=== PATIENT | female | born 1990 | race Caucasian/White ===

== ENCOUNTER 2019-12-27 10:49 | Outpatient (CLI) | payer BC, SELFPAY ==
--- NOTE | ~2019-12-27 | US_ITS ---
EXAMINATION: US OB <=14 wk fetus w TV EXAM DATE: 12/27/2019 12:52 INDICATION: Cramping, spotting, threatened . 1st trimester. TECHNIQUE: Pelvic obstetrical transabdominal and transvaginal sonogram was performed by a technologi . There are multiple grayscale and Doppler images available for interpretation. There are no karen ier studies of this gestation for comparison. FINDINGS: The uterus measures 9.4 x 4.9 x 4.6 cm. There is tiny anechoic focus within this, which if this is a gestation sac has mean sac diameter of 3 mm corresponding to estimated age 4 weeks 6 days. No yolk sac or pole. Small amount of free pelvic fluid. The ovaries are morphologically normal. IMPRESSION: Tiny anechoic endometrial focus, possible early gestation sac. Reviewed, dictated and finalized at location B.
[2019-12-27 14:41] LABS: Beta HCG Quantitative 190.51 mIU/ML
== END 2019-12-27 10:50 | disposition home or self-care (01) ==
PROVIDERS: PCP Internal Medicine; Visit Provider Obstetrics & Gynecology
DX: O20.0 Threatened abortion (principal); Z3A.00 Weeks of gestation of pregnancy not specified
CPT/HCPCS: 36415; 76801; 76817; 84702

== ENCOUNTER 2019-12-29 11:42 | Outpatient (CLI) | payer BC, SELFPAY ==
[2019-12-29 12:53] LABS: Beta HCG Quantitative 258.19 mIU/ML
== END 2019-12-29 11:43 | disposition home or self-care (01) ==
LOC: ANHLAB 11:47
PROVIDERS: PCP Internal Medicine; Visit Provider Obstetrics & Gynecology
DX: O20.0 Threatened abortion (principal)
CPT/HCPCS: 36415; 84702

== ENCOUNTER 2019-12-31 11:30 | Outpatient (RCR) | payer BC, SELFPAY ==
[2019-12-31 13:02] LABS: Beta HCG Quantitative 308.91 mIU/ML
== END 2020-03-30 23:59 | disposition home or self-care (01) ==
LOC: ANHLAB 11:30
PROVIDERS: PCP Internal Medicine; Visit Provider Obstetrics & Gynecology
DX: O20.0 Threatened abortion (principal); Z3A.00 Weeks of gestation of pregnancy not specified
CPT/HCPCS: 36415; 84702

== ENCOUNTER 2020-01-03 11:43 | Emergency (ER) | payer BC, SELFPAY ==
[2020-01-03 11:55] VITALS: BP 164/84; PULSE 61; RESP 17; TEMP 36.8; O2SAT 100
[2020-01-03 12:10] LABS: Basophils Percent Auto 0.3 % (0.2-1.2); Eosinophils Absolute Auto 0.1 K/mm3 (0-0.3); Hematocrit 38.5 % (37.0-47.0); Hemoglobin 12.5 g/dL (12.0-15.0); Immature Granulocyte Absolute 0.02 K/mm3 (0.00-0.031); Immature Granulocyte Percent A 0.3 % (0-0.5); Mean Corpuscular HGB Conc 32.5 g/dl (32-36); Mean Corpuscular Hemoglobin 28.7 pg (26-34); Mean Corpuscular Volume 88.5 fl (80-100); Monocytes Absolute Auto 0.4 K/mm3 (0.1-0.6); Monocytes Percent Auto 5.3 % (2.6-8.5); Neutrophils Absolute Auto 3.9 K/mm3 (1.3-6.7); Neutrophils Percent Auto 56.1 % (45.5-73.1); Platelet Count Result 253 k/mm3 (150-375); Red Blood Count 4.35 M/mm3 (4.2-5.4); White Blood Count 6.9 K/mm3 (4.5-10.0)
[2020-01-03 12:49] LABS: Beta HCG Quantitative 144.68 mIU/ML
--- NOTE | 2020-01-03 13:03 | ED.FEMALEGU ---
HPI - Female Genitourinary General Chief complaint: Vaginal Bleeding Stated complaint: miscarriage Time Seen by Provider: 01/03/20 12:55 History of Present Illness HPI Narrative: She is curently being followed by Dr. snyder for suspect impending miscarriage. She has been having vaginal spotting since 12/26. US at that time showed possible early gestational sac. She has been having her bhcg followed since that time and it has failed to increase as expected. Today she began having heavy vaginal bleeding She was filling up a pad about every 45 minutes. SHe is also having moderate pelvic cramping. She did have a few breif episodes of light headedness. No nausea, vomiting, diarrhea, fever, chest pain. Related Data Home Medications Medication Instructions Recorded Confirmed PNV cmb#95-ferrous fumarate-FA 1 tablet PO DAILY 01/03/20 01/03/20 [] Allergies Allergy/AdvReac Type Severity Reaction Status Date / Time latex Allergy Rash Verified 01/03/20 12:04 Penicillins Allergy Difficulty Verified 01/03/20 12:04 Breathing Review of Systems Review of Systems: All systems reviewed & are unremarkable except as noted in HPI and below Cardiovascular: Cardiovascular: Denies chest pain Respiratory: Respiratory: Denies dyspnea Gastrointestinal: Gastrointestinal: Denies abdominal pain, Denies diarrhea, Denies nausea and Denies vomiting Genitourinary: Genitourinary: Reports abnormal vaginal bleeding, Denies hematuria, Denies dysuria, Reports pelvic pain and Denies vaginal discharge Neurologic: Reports dizziness, Denies syncope and Denies weakness PMFSH Social History Social History Gender identity (if verbalized by the patient): Female Exam Const: General: healthy appearing, no acute distress and alert Orientation/consciousness: patient oriented x3 HENMT: Head: normal to inspection Resp: Effort & Inspection: normal respiratory effort Auscultation: clear to auscultation bilaterally Cardio: Rate: regular rate Rhythm: regular rhythm GI: GI Palp: Yes Soft to palpation and No Tenderness to palpation present (GI) Skin: General skin exam: normal color and no pallor Neuro: General: patient oriented x3 and moves all extremities Speech: normal speech Course Vital Signs Vital signs: Vital Signs Temperature 36.8 C 01/03/20 11:55 Pulse Rate 61 01/03/20 11:55 Respiratory Rate 17 01/03/20 11:55 Blood Pressure 164/84 H 01/03/20 11:55 Pulse Oximetry 100 01/03/20 11:55 Temperature 36.8 C 01/03/20 11:55 Pulse Rate 61 01/03/20 11:55 Respiratory Rate 17 01/03/20 11:55 Blood Pressure 164/84 H 01/03/20 11:55 Pulse Oximetry 100 01/03/20 11:55 MDM - Female Genitourinary MDM Narrative Medical decision making narrative: CBC normal. Symptoms consistent with miscarriage. bhcg trending down. Case discussed with Dr. Snyder. No additional imaging needed at this time. He will see her in clinic today or tomorrow to dicuss her options. I discussed this with the patient and she is in agreement with this plan. Medical Records Attestation: I reviewed the patient's medical records. Lab Data Attestation: I reviewed the patient's lab results. Result diagrams: 01/03/20 11:59 Labs: Lab Results 01/03/20 01/03/20 01/03/20 Range/Units 11:59 11:59 11:59 WBC 6.9 (4.5-10.0) K/mm3 RBC 4.35 (4.2-5.4) M/mm3 Hgb 12.5 (12.0-15.0) g/dL Hct 38.5 (37.0-47.0) % MCV 88.5 (80-100) fl MCH 28.7 (26-34) pg MCHC 32.5 (32-36) g/dl RDW 13.0 (11.5-14.5) % Plt Count 253 (150-375) k/mm3 MPV 10.0 (7.4-10.4) fl Immature Gran % (Auto) 0.3 (0-0.5) % Neut % (Auto) 56.1 (45.5-73.1) % Lymph % (Auto) 36.0 (18.3-44.2) % [place] % (Auto) 5.3 (2.6-8.5) % Eos % (Auto) 2.0 (0-4.4) % Baso % (Auto) 0.3 (0.2-1.2) % Lymph # (Auto) 2.50 (0.9-3.2) K/mm3 [place] # (Auto) 0.4 (0.
[2020-01-03 13:31] VITALS: BP 162/83; PULSE 62; RESP 18; O2SAT 100
== END 2020-01-03 13:33 | disposition home or self-care (01) ==
PROVIDERS: Emergency Provider Emergency Medicine; PCP Internal Medicine
DX: O03.4 Incomplete spontaneous abortion without complication (principal)
CPT/HCPCS: 36415; 84702; 85025; 85461; 99283

== ENCOUNTER 2020-01-08 02:03 | Outpatient (CLI) | payer BC, SELFPAY ==
[2020-01-08 17:59] LABS: SARS-CoV-2 RNA PCR Negative
== END 2020-01-08 02:04 | disposition home or self-care (01) ==
LOC: ANHCOVIDDT 02:03
PROVIDERS: PCP Internal Medicine; Visit Provider Obstetrics & Gynecology
DX: Z01.812 Encounter for preprocedural laboratory examination (principal); Z20.828 Contact with and (suspected) exposure to other viral communicable diseases
CPT/HCPCS: 87635; C9803; U0003

== ENCOUNTER 2020-01-10 02:43 | Day surgery (SDC) | payer BC, SELFPAY ==
[2020-01-10] MEDS: ACETAMINOPHEN 500 MG TABLET 1000 MG PO (11:19)
[2020-01-10 11:29] VITALS: BP 130/81; PULSE 57; RESP 20; TEMP 37.3; O2SAT 99
[2020-01-10] MEDS: LACTATED RINGERS 1,000 ML 30 ML IV CONT ×2 (11:55→14:36)
--- NOTE | 2020-01-10 11:59 | WPDANESEPPF ---
Anes - Initial Pre Proc Eval Procedure: Operation Date: 01/10/20 13:00 Proposed Procedures p Suction Dilation And Curettage - Sai Judd MD Date/Time: 01/10/20 11:59 Surgeon: Sai Judd MD Pre Op Diagnosis: Retained Products Of Conception Patient Data Age: 29 Gender: F Height: 1.52 m Weight: 124 kg Last Vital Signs Temp 37.3 C 01/10/20 11:29 Pulse 57 L 01/10/20 11:29 Resp 20 01/10/20 11:29 BP 130/81 01/10/20 11:29 Pulse Ox 99 01/10/20 11:29 Allergies Allergy/AdvReac Type Severity Reaction Status Date / Time Penicillins Allergy Severe DIFFICULTY Verified 01/10/20 11:17 BREATHING/HIVES latex AdvReac Mild SKIN Verified 01/10/20 11:17 IRRITATION Home Medications Medication Instructions Recorded Confirmed Type PNV cmb#95-ferrous fumarate-FA 1 tablet PO DAILY 01/03/20 01/10/20 History [] bupropion HCl [Wellbutrin XL] 300 mg PO QAM 01/07/20 01/07/20 History clonazepam 0.5 mg PO DAILY 01/07/20 01/10/20 History sertraline [Zoloft] 150 mg PO DAILY 01/07/20 01/07/20 History Patient hx anesthesia problems: none Family hx anesthesia problems: none PMFSH Past Medical History Medical History (Updated 01/10/20 @ 08:09 by Michael Khlail DO) Anxiety Depression OCD (obsessive compulsive disorder) Social History Social History Smoking status: Never smoker Alcohol use details: 1 glass a wine per week Substance use: never Living arrangements: with family Gender identity (if verbalized by the patient): Female Sexual Orientation (if Verbalized by the Patient): Straight or Heterosexual Spiritual care concerns: No Anes - Eval Final PreProcedure Day of Procedure 01/10/20 11:59 Patient weight: super morbidly obese Heart: regular rate and rhythm Lungs: clear to auscultation and normal air movement Airway: Mallampati scale class 1 Neurological: alert and oriented Last oral intake: >/= 8 hours ASA classification: III Emergent: no Anesthetic plan: proceed Anesthesia type and monitoring: general GIVS and standard monitoring Informed Consent: The patient's anesthetic plan and its attendant risks and benefits were discussed with the patient/family/POA. Questions were solicited and answers provided to the satisfaction of the patient/family/POA.
--- NOTE | 2020-01-10 12:52 | WPDHPUPDATE1 ---
History and Physical Update Update Date/Time: 01/10/20 12:52 History and Physical has been reviewed, including an updated exam of the patient. There are NO changes in the patient's condition. Risks, benefits, and alternatives have been discussed and questions answered. Patient agrees to proceed with procedure.
[2020-01-10 13:08] VITALS: BP 131/89; PULSE 76; RESP 22; O2SAT 98
--- NOTE | 2020-01-10 13:35 | PM.PROC ---
Procedure Note - Detailed Date of procedure: 01/10/20 Pre-op diagnosis: Retained Products Of Conception Post-op diagnosis: same Procedure performed: Suction D&C Description of procedure: The patient was taken the operating room. She has prepped and draped in dorsal lithotomy position after induction of mac anesthesia. A speculum was placed in the vagina. The cervix was grasped with a tenaculum. The cervix was injected at 3 and 9:00 a.m. with 1% lidocaine. The cervix was dilated up to 8 mm using Melton dilators. An 8 curved plastic suction curette was then applied to the intrauterine cavity. All of the surfaces in the intrauterine cavity were curettage under VAC. A sharp medium-size curette was then used to curettage all the surfaces to confirmed the removal of all the products conception. When all surfaces for bleed to be clean the curette was removed. The suction curette was then reapplied to remove all the debris. The procedure was terminated. The tenaculum was removed. The speculum was removed. The patient tolerated the procedure well. She was taken recovery room in stable condition. Anesthesia: MAC Surgeon: Sai Judd MD Estimated blood loss (mL): 25 Drains: No Packing: No Pathology: yes Complications: No immediate complications Condition: stable Disposition: PACU Findings: Normal vulva vagina and cervix. The moderate amounts of products conception. 8 cm uterus.
[2020-01-10] MEDS: fentaNYL CITRATE INJ (*CRX) 100 MCG/2 ML VIAL 25 MCG IV PUSH (13:54)
[2020-01-10 14:05] VITALS: BP 135/82; PULSE 59; RESP 20
--- NOTE | 2020-01-10 14:09 | SUR.PHASEII ---
AT BEDSIDE. PT NOW ASLEEP.
[2020-01-10] MEDS: ONDANSETRON INJ 4 MG/2 ML VIAL IV PUSH (14:30)
[2020-01-10 14:35] VITALS: BP 119/78; PULSE 54; RESP 20
--- NOTE | 2020-01-10 14:50 | SUR.PHASEII ---
CORRECTION: ASSESSMENT AND VITAL SIGNS CHARTED AT 1308 WERE SUPPOSED TO BE ENTERED 1337.
[2020-01-10 15:05] VITALS: BP 127/78; PULSE 59; RESP 20
--- NOTE | 2020-01-10 15:10 | SUR.PHASEII ---
NATANAEL MCCURDY FROM [facility] OFFERED TO SEE PT. PT WILL FOLLOW-UP WITH HER FROM HOME. NATANAEL AWARE OF PLAN. PT NOW RESTING ON RECLINER. C/O'D MIGRAINE; ZOFRAN GIVEN; COOL COMPRESS TO BACK OF NECK. AT BEDSIDE. PT REPORTED BLOOD IN TOILET BUT NONE ON PAD. WILL CONTINUE TO MONITOR.
[2020-01-10 15:35] VITALS: BP 122/70; PULSE 64; RESP 20
== END 2020-01-10 16:07 | disposition home or self-care (01) ==
PROVIDERS: PCP Internal Medicine; Visit Provider Obstetrics & Gynecology
PROC: (CPT 59820; principal; 2020-01-10 13:00)
DX: O02.1 Missed abortion (principal); F41.8 Other specified anxiety disorders; F42.8 Other obsessive-compulsive disorder; E66.01 Morbid (severe) obesity due to excess calories; Z68.43 Body mass index [BMI] 50.0-59.9, adult
CPT/HCPCS: 59820; 88305; A9270; J1100; J2250; J2405; J2704; J3010; J7120

== ENCOUNTER 2022-12-16 16:35 | Outpatient (RCR) | payer OTHER, SELFPAY ==
[2022-12-16 19:13] LABS: Beta HCG Quantitative 26.65 mIU/ML
== END 2022-12-16 16:36 | disposition home or self-care (01) ==
LOC: ANHLAB 16:35
PROVIDERS: PCP Internal Medicine; Visit Provider Obstetrics & Gynecology
DX: O20.0 Threatened abortion (principal); Z3A.00 Weeks of gestation of pregnancy not specified
CPT/HCPCS: 36415; 84702

== ENCOUNTER 2022-12-18 16:29 | Outpatient (CLI) | payer OTHER, SELFPAY ==
[2022-12-18 17:49] LABS: Beta HCG Quantitative 19.65 mIU/ML
== END 2022-12-18 16:30 | disposition home or self-care (01) ==
LOC: ANHLAB 16:31
PROVIDERS: PCP Internal Medicine; Visit Provider Obstetrics & Gynecology
DX: O20.0 Threatened abortion (principal); Z3A.00 Weeks of gestation of pregnancy not specified
CPT/HCPCS: 36415; 84702

== ENCOUNTER 2022-12-25 16:14 | Outpatient (CLI) | payer OTHER, SELFPAY ==
[2022-12-25 17:47] LABS: Beta HCG Quantitative < 2.39 mIU/ML
== END 2022-12-25 16:15 | disposition home or self-care (01) ==
LOC: ANHLAB 16:17
PROVIDERS: PCP Internal Medicine; Visit Provider Obstetrics & Gynecology
DX: O02.1 Missed abortion (principal)
CPT/HCPCS: 36415; 84702

== ENCOUNTER 2023-07-23 16:15 | Outpatient (RCR) | payer OTHER, SELFPAY ==
[2023-07-21 17:29] LABS: Beta HCG Quantitative 55.59 mIU/ML
[2023-07-23 17:19] LABS: Beta HCG Quantitative 135.58 mIU/ML
== END 2023-10-19 23:59 | disposition home or self-care (01) ==
LOC: ANHLAB 16:15
PROVIDERS: PCP Obstetrics & Gynecology; Visit Provider Obstetrics & Gynecology
DX: O20.0 Threatened abortion (principal)
CPT/HCPCS: 36415; 84702

== ENCOUNTER 2023-09-03 01:26 | Day surgery (SDC) | payer OTHER, SELFPAY ==
[2023-09-02 11:05] VITALS: BMI 45.5
--- NOTE | 2023-09-02 11:06 | PC.NURSE ---
Report to the Outpatient Waiting Room, entrance under the green pavilion located off [facility], at time _0830_ on date _[id number]_. Planned Procedure Time: _1030_. Time changes happen often and if your time is changed the preop area will call you the afternoon before. - You and your visitor will be asked to self-screen and do not enter if you have any COVID symptoms. - A mask is optional within the hospital at this time. Patients may have clear liquids (water, carbonated beverages, clear teas, apple juice) until 3 hours prior to surgery with a maximum of 20 ounces. - No food from midnight until time of surgery Take the following medications with a SIP of water the morning of surgery: ___None DO NOT STOP ANY OF YOUR OTHER PRESCRIPTION MEDICATIONS PRIOR TO SURGERY ?EXCEPT THE FOLLOWING Medications to discontinue per physician None Date to take last dose Please no make-up, nail frisian, hairspray, perfume, deodorant, or body powder the day of surgery. No jewelry (including any body piercings) or valuables the day of surgery, leave them at home. Please take a shower or bath the night before, or the morning of, surgery with an antibacterial soap. Wear comfortable, loose fitting clothing. - Jewelry must be removed prior to entering the operating room. Rings and piercings that are not removed may be cut off. - The hospital will not accept responsibility for valuables. - Please leave all valuables, including medications, at home the day of surgery. If you are going home after surgery, a licensed non emergency services ambulance driver must drive you home. - NO public transportation without another adult if you receive anesthesia. - We recommend that an adult stay with you for 24 hours following discharge. - We also recommend that you do not drive, make important decision, drink alcoholic beverages, or take any drugs that were not prescribed by your health care provider for at least 24 hours after your discharge time. Follow any additional instructions given to you from your surgeon. If you or anyone in your household have experienced Covid symptoms in the past week, please notify your surgeon or the nurse liaison at the phone number below for possible testing. Telephone instructions given to __Kandice__and asked if any additional questions and then verbalized understanding. Patient advised to call surgeon office or pre surgery nurse liaison [phone] if any additional questions.
--- NOTE | ~2023-09-03 | US_ITS ---
EXAMINATION: US OB <= 14 weeks fetus DATE: 09/03/2023 10:23 INDICATION: Missed . TECHNIQUE: Real-time transabdominal pelvic ultrasound was performed. COMPARISON: None. FINDINGS: The uterus measures 9.9 x 5.7 x 6.3 cm. The endometrial complex is thickened to 2.4 cm with increased vascular flow. No intrauterine gestation is identified. The ovaries are not visualized. There is no free fluid in the pelvis. IMPRESSION: 1. Thickened endometrial complex with increased vascular flow. If the patient has passed parts , these findings are consistent with retained products of conception. Reviewed, dictated and finalized at location A. IMPRESSION: 1. Thickened endometrial complex with increased vascular flow. If the patient has passed parts, these findings are consistent with retained products of conception.
[2023-09-03 09:20] VITALS: BP 149/88; PULSE 71; RESP 14; TEMP 37.1; O2SAT 100
[2023-09-03] MEDS: ACETAMINOPHEN 500 MG TABLET 1000 MG PO (09:20)
[2023-09-03] MEDS: LACTATED RINGERS 1,000 ML 30 ML IV CONT (09:20)
--- NOTE | 2023-09-03 09:32 | P.PNAN_ITS ---
Anes - Initial Pre Proc Eval Procedure: Operation Date: 09/03/23 10:30 Proposed Procedures p Suction Dilation and Curettage - Dayton Judd MD Date/Time: 09/03/23 09:32 Surgeon: Dayton Judd MD Pre Op Diagnosis: Missed AB Patient Data Age: 32 Gender: F Height: 1.7 m Weight: 137.7 kg Last Vital Signs Temp 37.1 C 09/03/23 09:20 Pulse 71 09/03/23 09:20 Resp 14 09/03/23 09:20 BP 149/88 H 09/03/23 09:20 Pulse Ox 100 09/03/23 09:20 O2 Del Method Room Air 09/03/23 09:20 Allergies Allergy/AdvReac Type Severity Reaction Status Date / Time Penicillins Allergy Severe DIFFICULTY Verified 09/03/23 09:27 BREATHING/HIVES Sulfa (Sulfonamide Allergy Severe Hives Verified 09/03/23 09:27 Antibiotics) latex AdvReac Mild SKIN Verified 09/03/23 09:27 IRRITATION Home Medications Medication Instructions Recorded Confirmed Type clonazepam 0.5 mg tablet 0.5 mg PO DAILY 01/07/20 09/02/23 History sertraline 100 mg tablet (Zoloft) 150 mg PO DAILY 01/07/20 09/02/23 History Patient hx anesthesia problems: none Family hx anesthesia problems: none Results Review: All pre-operative results and documents have been reviewed as part of the pre- operative evaluation. [facility] Past Medical History Medical History Anxiety Depression OCD (obsessive compulsive disorder) Social History Social History Smoking status: Never smoker Alcohol intake: current Drinks per week: 1 Alcohol use details: 1 glass a wine per week Substance use: never Living arrangements: with family Gender identity (if verbalized by the patient): Female Sexual Orientation (if Verbalized by the Patient): Straight or Heterosexual Spiritual care concerns: No Anes - Eval Final PreProcedure Day of Procedure 09/03/23 09:32 Patient weight: morbidly obese Heart: regular rate and rhythm Lungs: clear to auscultation Airway: Mallampati scale class II Neurological: alert and oriented Last oral intake: >/= 8 hours ASA classification: III Emergent: no Anesthetic plan: proceed Anesthesia type and monitoring: general GIVS and standard monitoring Results Review: All pre-operative results and documents have been reviewed as part of the pre- operative evaluation. Informed Consent: The patient's anesthetic plan and its attendant risks and benefits were discussed with the patient/family/POA. Questions were solicited and answers pro vided to the satisfaction of the patient/family/POA.
--- NOTE | 2023-09-03 10:15 | WPDHPUPDATE1 ---
History and Physical Update Update Date/Time: 09/03/23 10:15 History and Physical has been reviewed, including an updated exam of the patient. There are NO changes in the patient's condition. Risks, benefits, and alternatives have been discussed and questions answered. Patient agrees to proceed with procedure.
--- NOTE | 2023-09-03 10:15 | PM.IMHP ---
H&P: HPI History of Present Illness Date/Time: 09/03/23 10:15 Chief Complaint: Incomplete miscarriage Narrative: 37-year-old female with incomplete miscarriage. She has had multiple miscarriages now. We have agreed to proceed with suction D&C. The patient understands the details of the procedure. The procedure has been explained in detail. She understands the risks. She understands that injuries may occur that result in hospitalization, more surgery, and severe illness. She understands risk of hemorrhage and infection. She denies any chest pain or shortness of breath. She denies any nausea, vomiting, fever, chills. Review of Systems Review of Systems: All systems reviewed & are unremarkable except as noted in HPI and below Constitutional: Constitutional: Denies chills, Denies fatigue, Denies fever(s) and Denies weakness Eyes: Eyes: Denies blurry vision, Denies change in vision, Denies loss of peripheral vision, Denies loss of vision, Denies other visual disturbances and Denies eye pain ENT: Denies vertigo, Denies dizziness, Denies hearing loss, Denies mouth pain, Denies nasal obstruction, Denies neck mass and Denies neck pain Cardiovascular: Cardiovascular: Denies chest pain, Denies diaphoresis, Denies syncope, Denies leg edema and Denies dyspnea Respiratory: Respiratory: Denies chest congestion, Denies cough, Denies hemoptysis, Denies dyspnea and Denies wheezing Gastrointestinal: Gastrointestinal: Denies abdominal pain, Denies constipation, Denies diarrhea, Denies nausea and Denies vomiting Genitourinary: Genitourinary: Denies hematuria, Denies change in libido, Denies nocturia, Denies genital lesions, Denies flank pain and Denies urinary urgency Musculoskeletal: Musculoskeletal: Denies abnormal gait, Denies back pain, Denies myalgias, Denies arthralgias, Denies joint swelling, Denies muscle weakness and Denies neck pain Integumentary/Breasts: Skin/Breast: Denies swelling, Denies breast pain, Denies breast mass, Denies dry skin, Denies nipple discharge, Denies unusual bruising and Denies jaundice Neurologic: Denies Neuro-related abnormal movements, Denies Abnormal speech present, Denies abnormal gait, Denies behavioral changes, Denies confusion, Denies vertigo, Denies dizziness, Denies syncope, Denies loss of vision, Denies memory loss, Denies convulsions and Denies weakness Psychiatric: Psychiatric: Denies abnormal sleep pattern, Denies behavioral changes, Denies change in libido, Denies confusion, Denies depression, Denies anhedonia and Denies memory loss Endocrine: Endocrine: Reports no additional endocrine complaints, Denies change in libido and Denies fatigue Hematologic/Lymphatic: Hematologic/Lymphatic: Reports no additional hematologic/lymphatic complaints Allergic/Immunologic: Allergic/Immunologic: Reports no additional allergic/immunologic complaints and Denies wheezing PMFSH Past Medical History Medical History Anxiety Depression OCD (obsessive compulsive disorder) Social History Social History Smoking status: Never smoker Alcohol intake: current Drinks per week: 1 Alcohol use details: 1 glass a wine per week Substance use: never Living arrangements: with family Gender identity (if verbalized by the patient): Female Sexual Orientation (if Verbalized by the Patient): Straight or Heterosexual Spiritual care concerns: No Meds Home Medications and Allergies Home Medications Medication Instructions Recorded Confirmed Type clonazepam 0.5 mg tablet 0.5 mg PO DAILY 01/07/20 09/02/23 History sertraline 100 mg tablet (Zoloft) 150 mg PO DAILY 01/07/20 09/02/23 History Allergies Allergy/AdvReac Type Severity Reaction Status Date / Time Penicillins Allergy Severe DIFFICULTY Verified 09/03/23 09:27 BREATHING/HIVES Sulfa (Sulfonamide Allergy Severe Hives Verified 09/03/23 09:
[2023-09-03 10:46] VITALS: BP 110/70; PULSE 73; RESP 16; O2SAT 98
--- NOTE | 2023-09-03 10:48 | P.OP_ITS ---
Procedure Note - Detailed Date of Procedure 09/03/23 Pre-op Diagnosis incomplete miscarriage Post-op Diagnosis Same Procedure Performed Suction D&C Surgeon Dayton Judd MD Anesthesia MAC Indications missed Findings normal-appearing vulva vagina and cervix to. Moderate amount of products conception within the uterus. 8 cm uterus Description of Procedure the patient was taken the operating room. She was prepped and draped in dorsal lithotomy position after induction of mac anesthesia. A speculum was placed in the vagina. Cervix grasped with tenaculum. The cervix was dilated to about 1 cm Using Melton dilators. A 8. [place] curved curette was used to perform suction D&C. The curette was introduced and vacuum was applied. The curette was removed over all surfaces of the intrauterine cavity multiple times. This was done until all the surfaces were clear and had the familiar grainy texture they can be felt through the instrument. A sharp curette was then used to curettage all the surfaces. The suction cup was then reapplied 1 more time to remove any debris. The instruments were removed. The speculum and tenaculum were removed. The patient tolerated the procedure well. She was taken recovery room stable condition. Estimated Blood Loss 50 Drains No Packing No Pathology Yes Complications No immediate complications Condition Stable Disposition PACU
[2023-09-03] MEDS: fentaNYL CITRATE INJ (*CRX) 100 MCG/2 ML VIAL 25 MCG IV PUSH ×2 (10:56→11:16)
[2023-09-03 11:15] VITALS: BP 131/81; PULSE 65; RESP 16; O2SAT 99
[2023-09-03 11:45] VITALS: BP 121/76; PULSE 67; RESP 20
[2023-09-03] MEDS: oxyCODONE HCL (*CRX) 5 MG TAB IR PO (11:48)
[2023-09-03 12:20] VITALS: BP 130/80; PULSE 60; RESP 20
== END 2023-09-03 12:27 | disposition home or self-care (01) ==
PROVIDERS: Visit Provider Obstetrics & Gynecology
PROC: (CPT 59812; principal; 2023-09-03 10:30)
DX: O03.4 Incomplete spontaneous abortion without complication (principal); F41.9 Anxiety disorder, unspecified; F32.A Depression, unspecified
CPT/HCPCS: 59812; 36415; 76801; 85461; 86850; 86900; 86901; 88305; A9270; J2250; J2704; J3010; J7120